=== PATIENT | female | born 1955 | race Caucasian/White ===

== ENCOUNTER 2017-09-04 05:51 | Inpatient (IN) | payer OTHER ==
[2017-08-23 16:01] VITALS: BMI 38.9
[2017-09-04] MEDS ORDERED: TRANEXAMIC ACID 1000 MG/10 ML VIAL IVPUSH ONE (06:06)
[2017-09-04] MEDS ORDERED: CELECOXIB 200 MG CAPSULE PO ONE (06:06)
[2017-09-04] MEDS ORDERED: GABAPENTIN 300 MG CAPSULE (FP) PO ONE (06:06)
[2017-09-04] MEDS ORDERED: CEFAZOLIN 2 GM in DEXTROSE 5%-WATER - 50 ML IVPB ONE (06:06)
[2017-09-04] MEDS ORDERED: CELECOXIB 200 MG CAPSULE ONE (06:20)
[2017-09-04] MEDS ORDERED: BUPIVACAINE HCL/PF (5 MG/ML) 30 ML VIAL IJ ONE (07:02)
[2017-09-04] MEDS ORDERED: BUPIVACAINE LIPOSOME/PF (EXPAREL) 266 MG/20 ML VIAL ONE (07:02)
[2017-09-04] MEDS ORDERED: MIDAZOLAM HCL 2 MG/2 ML SINGLE DOSE VIAL ONE (07:02)
[2017-09-04] MEDS ORDERED: SODIUM CHLORIDE 0.9% P/F 10 ML VIAL IJ ONE (07:03)
--- NOTE | 2017-09-04 07:50 | HP ---
Satellite [facility] - Chief Complaint Chief Complaint: left knee pain - Past Medical History Allergies/Adverse Reactions: Allergies Allergy/AdvReac Type Severity Reaction Status Date / Time acetaminophen Allergy Severe Rash,SORES Verified 09/04/17 06:53 [From Contac Cold-Flu Day IN MOUTH and Night] Bleach (Sodium Hypochlorite) Allergy Severe Difficulty Verified 09/04/17 06:53 Breathing,RED,ITCHY chlorpheniramine Allergy Severe Rash Verified 09/04/17 06:53 [From Contac Cold-Flu Day and Night] diphenhydramine Allergy Severe Swelling Verified 09/04/17 06:53 [From Benadryl] erythromycin base Allergy Severe Hives Verified 09/04/17 06:53 grape Allergy Severe Itching Verified 09/04/17 06:53 ibuprofen Allergy Severe Hives,SWELL Verified 09/04/17 06:53 ING levofloxacin [From Levaquin] Allergy Severe Hives Verified 09/04/17 06:53 orange juice Allergy Severe SORES IN Verified 09/04/17 06:53 MOUTH Penicillins Allergy Severe Hives Verified 09/04/17 06:53 phenylephrine Allergy Severe Rash Verified 08/23/17 15:48 [From Contac Cold-Flu Day and Night] tomato Allergy Severe Itching Verified 08/23/17 15:51 GRAPE JUICE Allergy Severe Itching Uncoded 08/23/17 15:51 HAND GUIDANCE ADVISER Allergy Severe Cough,SWELL Uncoded 08/23/17 15:50 ,RED - Current Medications Current Medications: Home Medications Medication Instructions Recorded Metaxalone [Skelaxin] 800 mg PO HS PRN 08/23/17 Naproxen [Naprosyn -] 500 mg PO BID PRN 08/23/17 Simvastatin 10 mg PO HS 08/23/17 Satellite Physical Exam - Physical Examination Vital Signs: Vital Signs Period Temp Pulse Resp BP Sys/Davison Pulse Ox Last 24 Hr 98.0 F 84 16 176/97 97 General Appearance: Well Nourished, Well Developed, Alert & Oriented x3 ENT: Clear Lung: Normal air movement Heart: Regular rate & rhythm Extremities: Other (left knee- + swelling, + ttp, decr rom ,nvi xrays show grade 4 tricompartmental djd) Neurological: Intact, Alert, Oriented Satellite Impression/Plan - Impression/Plan Impression: left knee djd Operative Procedure: left liana tkr Date to be Performed: 09/04/17
[2017-09-04] MEDS ORDERED: VANCOMYCIN 1,000 MG VIAL (RESTRICTED TO ID ONLY) IVPB ONE (10:27)
[2017-09-04] MEDS ORDERED: MAGNESIUM HYDROX 2400MG/30ML ORAL SUSPENSION 30 ML CUP PO PRN (10:42)
[2017-09-04] MEDS ORDERED: ONDANSETRON 4 MG/2 ML VIAL IVPUSH PRN ×2 (10:42→11:32)
[2017-09-04] MEDS ORDERED: MAG HYDROX/AL HYDROX/SIMETH 30 ML UNIT-DOSE CUP PO PRN (10:42)
[2017-09-04] MEDS ORDERED: PATIENT'S OWN MEDICATION (NON-FORMULARY) (Metaxalone [Skelaxin] 800 MG) PO PRN (10:42)
[2017-09-04] MEDS ORDERED: LACTATED RINGERS SOLUTION 1,000 ML IV SCH (10:45)
--- NOTE | 2017-09-04 10:49 | OP ---
Operative Note - Note: Operative Date: 09/04/17 (dexter) Pre-Operative Diagnosis: left knee djd Operation: left liana tkr Post-Operative Diagnosis: Same as Pre-op Surgeon: Long You Disease Case Manager: Zach Cortez Anesthesiologist/PRINT LINE OPERATOR: Clovis Juarez Anesthesia: Spinal, Local Specimens Removed: bone fragments Estimated Blood Loss (mls): 200 Operative Report Dictated: Yes
[2017-09-04] MEDS ORDERED: oxyCODONE HCL 5 MG TABLET PO PRN ×2 (11:32)
[2017-09-04] MEDS ORDERED: PROMETHAZINE HCL 25 MG/1 ML VIAL IVPB PRN (11:32)
[2017-09-04] MEDS ORDERED: ACETAMINOPHEN 325 MG TABLET (FP) PO SCH (11:45)
[2017-09-04] MEDS ORDERED: ACETAMINOPHEN 325 MG TABLET (FP) ONE (11:49)
[2017-09-04] MEDS ORDERED: ACETAMINOPHEN 325 MG TABLET (FP) PO ONE (12:45)
[2017-09-04] MEDS: ACETAMINOPHEN 325 MG TABLET (FP) PO SCH ×2 (13:00→18:44)
[2017-09-04] MEDS: CEFAZOLIN 2 GM/D5W 2 GM/50 ML ML IVPB SCH (16:00)
--- NOTE | 2017-09-04 16:40 | OP ---
DATE OF OPERATION: 09/04/2017 PREOPERATIVE DIAGNOSIS: Degenerative joint disease, left knee. POSTOPERATIVE DIAGNOSIS: Degenerative joint disease, left knee. PROCEDURE: Left total knee replacement, robotic assisted navigation (Makoplasty). SURGEON ATTENDING: Long You M.D. DIRECTOR OF MANUFACTURING: Solange Sanabria ANESTHESIA: Regional and spinal. CLOSURE: A cemented Triathlon knee system with a 4 femur, 4 tibia, 13 polyethylene TS insert, a 15 mm stem, a 32 mm patella, number 1 Vicryl fascia, 0 and 2-0 subcutaneous, 3-0 Monocryl subcuticular with skin glue for skin, 4-0 undyed Vicryl for pin sites. ESTIMATED BLOOD LOSS: Less than 100 mL. COMPLICATIONS: None. CONDITION: To recovery room in stable condition. INDICATION FOR OPERATIVE PROCEDURE: Preoperative alternatives were gone over with the patient in great detail and with multiple family members. Patient had severe DJD of the left knee with range of motion of only about 20 degrees to 70 degrees and severe subluxation and vasts amounts of osteophyte formation around the knee. Patient and family informed of the increased risk of this procedure secondary to the need to excise all these osteophytes, especially posteriorly. Patient wants to go forward with the procedure. The procedure was being performed today. DESCRIPTION OF OPERATIVE PROCEDURE: Patient taken to the operating room on today, September 04, 2017. Spinal and regional anesthesia was administered by the anesthesiologist. IV Kefzol and TXA were administered prophylactically prior to the case. A well-padded pneumatic tourniquet was placed on left proximal thigh. Left lower extremity prepped and draped in the usual sterile fashion. A 12 to 15 cm longitudinal midline incision was incised, hemostasis achieved with Bovie cautery. Sharp dissection was carried medial and laterally at the patella. Medial parapatellar arthrotomy was then performed, exposing the knee. A large amount of osteophytes around the patella were excised to allow the patella to be inverted. The knee was flexed at 90 degrees as subperiosteal dissection was done on the anterior medial and proximal tibia. There were no meniscal remnants. The notch had been completely obliterated and overgrown with bone with massive amounts of osteophytes circumferentially around the knee. Checkpoints malleable both the femur and the tibia. Bicortical pins we drilled through 2 small stab incisions one handbreadth below the tibial tubercle through the outer cortex and then up to the far cortex, but not going through the far cortex. Two parallel pins were also drilled proximal to the medial femoral condyle on an oblique angle. To both sets of pins were fastened tibial and femoral navigation arrays. The knee was registered with navigation device with center of rotation of the hip, medial and lateral malleoli, and multiple points on both the femur and the tibia. The excellent registration was confirmed by "popping the bubbles." At this time, the osteophytes were removed that were able to be seen from the front. Due to preoperative evaluation of the CAT scan showing massive osteophytes posterior aspect of the knee which would not be reachable at this period of time, we elected to conform the robot to only take a minimal cut on the tibia, distal femur and posterior condyle. We used the robot to come into the field and help us make these cuts. Once these cuts were made, lamina spreaders were placed both medially and laterally to reach the back of the knee to remove the osteophytes from the posterior aspect of the femur as well as posterior aspect of the tibia. This allowed us to then balance the knee in both flexion and extension and confirming this with the navigation device. We moved the virtual component on the computer until they were placed in an optimal position insuring good stability in flexion and extension and with varus and valgus stress. The robot was back into the field and was again used to cut the femur and tibia to a number 4 placement. The box was then made as well, lollipops in both flexion and extension revealed equal tension medial and laterally in both extension and 90 degrees of flexion with a 13-mm insert. Trial components were applied. The knee was taken through a range of motion going from full extension, full flexion, with excellent tension both medial and laterally. The patella was calipered for thickness and then osteotomized down to the appropriate level. A 32 lollipop was used to drill the lugholes. Range of motion of the knee revealed excellent tracking of the patella throughout the range of motion and good stability throughout. Trial components were removed. The keel was then punched. Due to the significant subluxation prior to the case, it was elected to use a TS implant with a small stem on the femur. We pulse irrigated the knee, and cemented in these components using modern generation cement techniques with antibiotics and pressurization. Cement was hardened, the knee thoroughly inspected to remove all excess cement. The knee was thoroughly irrigated with antibiotic irrigation. The real 13 TS implant was then applied and clipped into place. Then the knee was taken through a range of motion, full extension, excellent flexion with excellent tracking of the patella throughout, and the tourniquet was inflated prior to cementing and was deflated after cement was hardened. The knee was thoroughly irrigated. Vancomycin powder was then placed into the knee. Another gram of TXA was deployed after tourniquet was deflated. Medial parapatellar arthrotomy was then closed using number 1 Vicryl, 0 and 2-0 subcutaneous, and 3-0 Monocryl subcuticular skin glue. This was done after the pins and the checkpoints were removed from inside the knee. Distal pin sites were closed using 4-0 undyed Vicryl and skin glue. Sterile pressure dressing with an Aquacel dressing was applied. X-rays revealed excellent position of the components. Patient awakened from anesthesia and transferred to Recovery in stable condition. No complications. Estimated blood loss less than 100 mL. Guerda [id number]
[2017-09-04] MEDS: SENNOSIDES/DOCUSATE COMBO (SENNA PLUS) TABLET (UD) PO SCH (22:01)
[2017-09-04] MEDS: ATORVASTATIN CA 10 MG TABLET (FP) PO SCH (22:01)
[2017-09-04] MEDS: oxyCODONE HCL 10 MG SUSTAINED ACTING TABLET PO SCH (22:01)
[2017-09-05] MEDS: ACETAMINOPHEN 325 MG TABLET (FP) PO SCH ×4 (00:32→18:04)
[2017-09-05] MEDS: CEFAZOLIN 2 GM/D5W 2 GM/50 ML ML IVPB SCH (00:32)
[2017-09-05] MEDS: ASPIRIN 325 MG TABLET PO SCH (08:00)
[2017-09-05 08:23] LABS: HEMATOCRIT 37.3 % (32.4-45.2); HEMOGLOBIN 12.6 GM/dl (10.7-15.3); MCHC 33.8 g/dl (32.0-36.0); MEAN CELL VOLUME 82.8 fl (80-96); PLATELET COUNT 232 K/MM3 (134-434); RDW 13.1 % (11.6-15.6); WHITE BLOOD COUNT 8.7 K/mm3 (4.0-10.8)
--- NOTE | 2017-09-05 08:51 | PN ---
Progress Note (short form) - Note Progress Note: Ortho Pt seen and examined s/p left liana tkr pod #1 Selected Entries 09/05/17 06:00 Temperature 99.1 F Pulse Rate 82 Respiratory 20 Rate Blood Pressure 153/78 Laboratory Tests 09/05/17 07:50 WBC 8.7 Hgb 12.6 Hct 37.3 Plt Count 232 dressing c/d/i, calf soft, nt rom 0-30, nvi a/p PT dvt ppx pain control d/c planning
[2017-09-05] MEDS: SENNOSIDES/DOCUSATE COMBO (SENNA PLUS) TABLET (UD) PO SCH ×2 (10:00→21:56)
[2017-09-05] MEDS: oxyCODONE HCL 10 MG SUSTAINED ACTING TABLET PO SCH ×2 (10:00→21:56)
[2017-09-05] MEDS: MULTIVITAMINS (DAILY MVI) TABLET (FP) PO SCH (10:00)
[2017-09-05] MEDS: PANTOPRAZOLE 40 MG TABLET (FP) PO SCH (10:00)
[2017-09-05] MEDS: ACETAMINOPHEN WITH CODEINE 300MG/30MG TABLET PO PRN ×2 (14:25→19:40)
[2017-09-05] MEDS: ATORVASTATIN CA 10 MG TABLET (FP) PO SCH (21:56)
[2017-09-06 09:11] VITALS: BP 142/79; PULSE 90; TEMP 99
[2017-09-06 09:45] LABS: HEMATOCRIT 36.8 % (32.4-45.2); HEMOGLOBIN 12.4 GM/dl (10.7-15.3); MCH 28.1 pg (25.7-33.7); MCHC 33.7 g/dl (32.0-36.0); MEAN CELL VOLUME 83.3 fl (80-96); MEAN PLT VOLUME 8.4 fl (7.5-11.1); PLATELET COUNT 251 K/MM3 (134-434); RBC 4.42 M/mm3 (3.60-5.2); RDW 13.5 % (11.6-15.6); WHITE BLOOD COUNT 10.5 K/mm3 (4.0-10.8)
[2017-09-06] MEDS: ACETAMINOPHEN WITH CODEINE 300MG/30MG TABLET PO PRN (10:01)
[2017-09-06] MEDS: oxyCODONE HCL 10 MG SUSTAINED ACTING TABLET PO SCH (10:02)
[2017-09-06] MEDS: ASPIRIN 325 MG TABLET PO SCH (10:02)
[2017-09-06] MEDS: SENNOSIDES/DOCUSATE COMBO (SENNA PLUS) TABLET (UD) PO SCH (10:02)
[2017-09-06] MEDS: ACETAMINOPHEN 325 MG TABLET (FP) PO SCH (10:02)
[2017-09-06] MEDS: PANTOPRAZOLE 40 MG TABLET (FP) PO SCH (10:03)
[2017-09-06] MEDS: MULTIVITAMINS (DAILY MVI) TABLET (FP) PO SCH (10:03)
--- NOTE | 2017-09-06 10:25 | PN ---
Progress Note (short form) - Note Progress Note: Ortho Pt seen and examined s/p left liana tkr pod #2 Selected Entries 09/06/17 08:10 Temperature 99.0 F Pulse Rate 90 Respiratory 18 Rate Laboratory Tests 09/06/17 08:00 WBC 10.5 Hgb 12.4 Hct 36.8 Plt Count 251 dressing c/d/i, calf soft, nt rom 0-40, nvi a/p PT dvt ppx pain control d/c planning to snf
--- NOTE | 2017-09-06 10:26 | DS ---
Physical Examination Vital Signs: Vital Signs Temperature 99.0 F 09/06/17 08:10 Pulse Rate 90 09/06/17 08:10 Respiratory Rate 18 09/06/17 08:10 Blood Pressure 142/79 09/06/17 08:10 O2 Sat by Pulse Oximetry (%) 99 09/05/17 22:00 Labs: CBC, BMP 09/06/17 08:00 Discharge Summary Reason For Visit: OSTEOARTHRITIS Procedures: Principal: s/p left tkr Hospital Course: admitted for elective left liana tkr, uneventful post-op, stable for d/c Condition: Good - Instructions Diet, Activity, Other Instructions: Post-op Instructions-Total Knee Replacement Call the office for a follow-up appointment in 1 week - [phone] Aspirin 325mg daily for 6 weeks. Pain medication was sent into your pharmacy. Apply Graduated Compression Stockings (TEDs) to both lower extremities- remove daily for hygiene ONLY Apply Sequential Compression Device (SCDs) to both Lower extremities remove for PT and hygiene ONLY Apply cold packs to affected area for 15 minutes every 2 hours. Physical Therapist will come to your home for the first 5 days. You will be set up with outpatient PT at your first post-operative visit. Patient may ambulate as tolerated-encourage self care (at least every 2-3 hours while awake) with walker or cane Maintain Aquacel (waterproof) dressing to operative wound (will be removed by surgeon at first office visit) Shower with Aquacel dressing in place-if Aquacel integrity compromised, remove and apply dry sterile dressing and notify Orthopedist. DO NOT SHOWER unless Orthopedists approves without Aquacel dressing CONTACT THE OFFICE FOR ANY CHANGE IN YOUR CONDITION (for example-fever greater than 102 degrees, excessive bleeding from operative site, purulent drainage, severe swelling or pain) GO TO THE EMERGENCY ROOM IF THERE IS A MEDICAL EMERGENCY Knee Precautions: * Keep a rolled towel under affected heel while in bed or chair (to keep knee in extension) * Keep affected leg elevated except during mealtimes * DO NOT PLACE PILLOW UNDER AFFECTED KNEE * If you have any questions, please do not hesitate to call the office - . Referrals: Long You MD [Staff Physician] - Disposition: [facility] - Home Medications Comprehensive Discharge Medication List: Ambulatory Orders Metaxalone [Skelaxin] 800 mg PO HS PRN 08/23/17 Naproxen [Naprosyn -] 500 mg PO BID PRN 08/23/17 Simvastatin 10 mg PO HS 08/23/17 Aspirin [ASA -] 325 mg PO DAILY@0800 tablet 09/04/17 Oxycodone HCl [Roxicodone] 5 mg PO Q6H #50 tablet MDD 6 09/04/17
--- NOTE | 2017-09-06 16:23 | PATH ---
Surgical Pathology Report Patient Name: SHAYY CARLISLE Med. Rec. #: [id number] /Age/Gender: 1955 (Age: 61) / F Account: [id number] Location: [facility] Taken: 09/04/2017 Received: 09/04/2017 Reported: 09/06/2017 Physicians: Long You M.D. Specimen(s) Received LEFT KNEE BONE Clinical History Left knee osteoarthritis Final Diagnosis LEFT KNEE BONE, RESECTION: DEGENERATIVE JOINT DISEASE, LEFT KNEE. Electronically Signed Clara Masterson M.D. Gross Description Received in formalin labeled "left knee bone," is an 8.0 x 7.0 x 6.0 cm aggregate of multiple portions of bone and soft tissue, consistent with knee bones. There are areas of eburnation present. The remaining articular surfaces are oh-yellow and diffusely granular. The underlying trabecular bone is yellow and hard. Pipelines Supervisor sections are submitted in one cassette, following decalcification. MO/09/04/2017 doris/09/04/2017
== END 2017-09-06 11:56 | DRG 470 ==
LOC: FM/S 05:51
PROVIDERS: ADMIT Orthopaedic Surgery; ATTEND Orthopaedic Surgery
PROC: 8E0Y0CZ Robotic Assisted Procedure of Lower Extremity, Open Approach (ICD-10-PCS; 2017-09-04)
PROC: 0SRD0J9 Replacement of Left Knee Joint with Synthetic Substitute, Cemented, Open Approach (ICD-10-PCS; principal; 2017-09-04 08:00)
DX: M17.12 Unilateral primary osteoarthritis, left knee (principal)
CPT/HCPCS: 36415; 73560-TC-LT-FY; 85027; 88304-TC; 88311-TC; 94010; 94760; 97116-GP; 97162-GP